=== PATIENT | female | born 1975 ===

== ENCOUNTER 2024-04-30 11:19 | Emergency (ER) | payer BC, SELFPAY ==
[2024-04-30 11:25] VITALS: BP 146/85
--- NOTE | 2024-04-30 11:47 | ED.GENMED ---
History of Present Illness
General
Chief Complaint: Chest Pain
Source: patient and spouse
Exam Limitations: none
Time Seen by Provider: 04/30/24 11:30
Nursing documentation reviewed up to this point in time: agreed with
History of Present Illness
History of Present Illness:
48-year-old female with no reported chronic medical issues presents to the emergency room for evaluation of chest pain. Patient reports gradual onset 2 days ago and symptoms have been constant since that time and were a bit worse today although she
says that now that she is here in the emergency room they have completely resolved. She describes 'an annoying' pain substernal. Radiates a bit towards the jaw. No clear triggering or relieving factors noted�specifically denies worsening with
exertion. She says that she was able to go to the gym and do a full weightlifting workout yesterday and could not even recall if the pain was there while she was working out. She denies any associated shortness of breath. She denies any recent
cough, fevers, chills. Denies any leg pain or swelling. Denies any abdominal pain, nausea, vomiting. She denies having had similar symptoms in the past. Denies any known cardiac history.
Review of Systems
Review of Systems
All Other Systems: ROS reviewed and negative except as documented in HPI and ROS
Constitutional: Denies fever or chills
EENT: Denies sore throat or runny nose
Respiratory: Denies cough or trouble breathing
Cardiac: Reports chest pain; Denies palpitations
ABD/GI: Denies abdominal pain, nausea or vomiting
: Denies flank pain
Musculoskeletal: Denies neck pain or back pain
Neurological: Denies headache
Phy Exam
Physical Exam
Physical Exam:
General: Awake, alert, oriented x3; no acute distress
Head: Normocephalic, atraumatic
Eyes: Conjunctiva normal, EOMI
Throat: Airway intact, handling secretions
Neck: Trachea midline, supple without meningismus
Lungs: Clear to auscultation bilaterally, no wheezing, rales, rhonchi
Heart: Regular rate and rhythm, no murmurs, gallops, or rubs; no chest wall tenderness
Abd: Soft, non distended, nontender
Neuro: Cranial nerves grossly intact, speech fluid
Skin: no rash
Extremities: No edema in extremities, equal pulses in all extremities
Scores
Heart Failure Risk
Heart Failure Risk Score: Not Applicable
Heart Score for Chest Pain Patients
STEMI patient?: No
History: Slightly or Non-Suspicious
ECG: Nonspecific Repolarization
Age: >45 - <65 years
Risk Factors: No Risk Factors
Troponin: </= Normal Limit
Heart Score for Chest Pain Patients: 2
Heart Score Risk: 2.5% MACE over next 6 weeks
Withdrawal Assessment of Alcohol
Withdrawal Assessment Completed?: Not applicable
Course
Orders/Labs/Results
Orders:
Orders
04/30/24 11:19
EKG [Electrocardiogram (*1)] Urgent
Reason for Study: Chest Pain
04/30/24 11:20
EKG- Treatment ONCE
04/30/24 11:43
CR Chest - 2 Views Urgent
Comment:
Reason For Exam: cp
04/30/24 11:52
Complete Blood Count/With Diff Urgent
Comprehensive Metabolic Panel Urgent
D-Dimer Urgent
Troponin I Urgent
Abnormal Lab Results
04/30/24
11:52
Hct 35.9 L %
(37.0-47.0)
Carbon Dioxide 21 L mmol/L
(22-30)
04/30/24 11:52
04/30/24 11:52
Vital Signs
Initial and Last Documented VS:
Initial Vital Signs
Temp Pulse Resp BP Pulse Ox
37.0 C 72 16 146/85 99
04/30/24 11:25 04/30/24 11:25 04/30/24 11:25 04/30/24 11:25 04/30/24 11:25
Last Documented Vital Signs
Temp Pulse Resp BP Pulse Ox
37.0 C 72 16 146/85 99
04/30/24 11:25 04/30/24 11:25 04/30/24 11:25 04/30/24 11:25 04/30/24 11:25
MDM/Problems Addressed
Differential Diagnosis Includes:
Costochondritis, GERD, chest wall strain, pneumothorax, PE, [place]
MDM/Problems Addressed:
48-year-old female presents to the emergency room for evaluation of chest pain constant for 2 days not exertional. Symptoms now resolved. Vitals normal. Exam as above. EKG shows sinus rhythm with incomplete left bundle branch block. Will place
an IV check labs including a CBC and a CMP, troponin, D-dimer. Check a chest x-ray. Monitor for recurrence and reassess after the above.
Labs reviewed: CBC and CMP unremarkable. Troponin undetectable and with constant symptoms x 2 days this is sufficient to rule out acute [place]. D-dimer negative. Chest x-ray no acute disease. Low suspicion for emergent pathology, suspect this could
be musculoskeletal pain/costochondritis. Stable for discharge follow-up with PCP. Spoke about return precautions all questions answered.
*Radiology
Radiology exam reviewed: radiology read reviewed
*Pulse Oximetry
Patient hypoxic: no
*EKG
Interpreted by ED Provider?: Yes
Heart Rate: 58
Rate: bradycardiac
Rhythm: sinus
Pecan Gap: left axis deviation
Interval: normal interval
QRS Pattern: left bundle branch block (Incomplete)
Ischemia: non-specific ST changes
*Critical Care Note
Total Time (30-74mins, 75-104mins- exclusive of procedures): Not Applicable
Data Reviewed
Source: patient and spouse
ED Attending Note
-
Portions of this chart may have been created with voice recognition software.� Occasional wrong word or��sound alike� substitutions may have occurred due to the inherent limitations of voice recognition software.
Discharge Plan
Departure
Patient Disposition: Home (Routine Discharge)
Date of Disposition: 04/30/24
Time of Disposition: 12:49
Patient with high blood pressure during this ER visit?: No
Discharge Problem:
Chest pain
Instructions: Chest Pain PCP Follow Up
Prescriptions:
No Action
No Current Medications
0
Referrals:
NONE,* [Family Provider] -
Activity Restrictions/Additional Instructions:
Thank you for visiting the Emergency Department at [facility].
1. Please schedule a follow up appointment as directed. Call first thing tomorrow morning to make an appointment.
2. If indicated, please take your medications as instructed and indicated on discharge paperwork.
3. If any of your symptoms do not improve, or persist, or become more severe within 6-12 hours, please return to the emergency department for further care.
4. Please return to the emergency department if you develop a headache, neck pain/stiffness, fever greater than 100.4F, chest pain, shortness of breath, persistent nausea, vomiting, slurred speech, difficulty walking, numbness/tingling, weakness,
signs of infection or any other symptoms that are worrisome to you.
Please call [phone] if you have any questions.
Interventions
Interventions:
*Risk Screen - Suicide Last Done: 04/30/24 11:25
*General Assessment Last Done: 04/30/24 12:15
*Neglect/Abuse Screening Last Done: 04/30/24 11:25
ED- Cardiac Assessment Last Done: 04/30/24 12:15
Discharge Date and Time
Print Language: [place]
[2024-04-30 12:01] LABS: % Basophils 0.5 % (0-2); % Eosinophils 0.4 % (0-6); % Immature Granulocytes 0.1 % (0-0.5); % Lymphocytes 23.8 % (20.5-51.1); % Monocytes 5.9 % (1.7-9.3); % Neutrophils 69.3 % (42.2-75.2); Absolute Lymphocytes 1.8 10^3/uL (1.2-3.4); Absolute Monocytes 0.5 10^3/uL (0.1-0.6); Absolute Neutrophils 5.3 10^3/uL (1.4-6.5); Hematocrit 35.9 % (37.0-47.0); Hemoglobin 12.4 g/dL (12.0-16.0); Mean Corp Hgb Conc. 34.5 g/dL (33.0-37.0); Mean Corpuscular Hgb 29.5 pg (27.0-31.0); Mean Corpuscular Volume 85.3 fL (81.0-99.0); Mean Platelet Volume 9.4 fL (7.4-10.4); Nucleated Red Blood Cells % 0 %; Platelet Count 290 10^3/uL (130-400); Red Blood Cell Count 4.21 10^6/uL (4.20-5.40); Red Cell Dist. Width 12.4 % (11.5-14.5); White Blood Cell Count 7.7 10^3/uL (4.8-10.8)
[2024-04-30 12:19] LABS: ALT (SGPT) 15 U/L (0-35); AST (SGOT) 21 U/L (14-36); Albumin 4.1 g/dl (3.5-5.0); Alkaline Phosphatase 66 U/L (38-126); Blood Urea Nitrogen 13 mg/dl (7-17); Calcium 9.3 mg/dl (8.4-10.2); Carbon Dioxide 21 mmol/L (22-30); Chloride 106 mmol/L (98-107); Glucose 99 mg/dl (70-99); Potassium 4.3 mmol/L (3.5-5.1); Sodium 139 mmol/L (135-145); Total Bilirubin 0.6 mg/dl (0.2-1.3); Total Protein 6.8 g/dl (6.3-8.2); eGFR > 60.00
[2024-04-30 12:27] LABS: Troponin I < 0.012 ng/ml
[2024-04-30 12:46] LABS: D-Dimer < 0.27 ug/mlFEU (0.00-0.50)
== END 2024-04-30 13:24 | disposition home or self-care (01) ==
LOC: EMR 11:19
PROVIDERS: EMERGENCY PHYSICIAN Emergency Medicine
DX: R07.89 Other chest pain (principal)
CPT/HCPCS: 99283; 71046; 80053; 84484; 85025; 85379; 93005